=== PATIENT | male | born 1940 | race Caucasian/White ===

== ENCOUNTER → 2016-03-01 | Outpatient (CLI) | payer MEDICARE, OTHER ==
[~2016-03-01] MED LIST: ALBU6.7H INH; ASPI81TA82 PO; CLOP75 PO; ENAL5 PO; FLOVENT110 MCG/A INH; LYRI100C PO; OMEP20TA39 PO; PRAV20 PO; TAZT300C2 PO; TIOT18I INH; VITA500S3 PO; ZOLP10TA3 PO
--- NOTE | 2016-03-01 10:53 | RADRPT ---
EXAM DATE/TIME: 03/01/2016 00:00 [place] COMPARISON: No previous studies available for comparison. INDICATIONS : Dysphagia, coughing and choking for 6 months FLUORO TIME: 1.4 minutes IMAGE COUNT: 0 CONTRAST: Dose as prescribed by speech pathologist. MEDICAL HISTORY : Cerebrovascular disease. SURGICAL HISTORY : aneurysm coil ENCOUNTER: Initial ACUITY: 4 - 6 months PAIN SCORE: 0/10 LOCATION: Bilateral esophagus FINDINGS: A modified barium swallow was performed with speech pathology. Patient was given a variety of liquids to swallow. 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 T here was normal swallowing mechanism with no vestibular penetration or aspiration. For a full detailed report, see report by the speech pathologist. CONCLUSION: Unremarkable modified barium swallow. Stefano Rudolph MD on March 01, 2016 at 10:52 Board Certified Radiologist. This report was verified electronically.
== END ==
LOC: HRAD 09:35
PROVIDERS: ATTEND Internal Medicine Gastroenterology
DX: R13.12 Dysphagia, oropharyngeal phase (principal)
CPT/HCPCS: 74230; 92611; G8996; G8997; G8998